=== PATIENT | female | born 1960 | race Caucasian/White ===

== ENCOUNTER 2016-10-08 08:22 | Emergency (ER) | payer OTHER ==
[~2016-10-08] VITALS: Ht 167.6 cm; Wt 85.2 kg
[~2016-10-08 08:22] MED LIST: AMBIEN10 MG PO; AMLODIPINE BESYL5 MG PO; ATENOLOL100 M1 PO; ATENOLOL100 MG PO; ATIVAN0.5 MG PO; Antivert PO; Aspirin Chewable PO; CARAFATE1 GM PO; EFFEXOR75 MG PO; FENOFIBRATE160 M1 PO; FENOFIBRATE160 MG PO; GEMFIBROZIL600 MG PO; GEODON60 MG PO; GEODON80 MG PO; KLOR-CON 1010 MEQ PO; LISINOPRIL10 MG PO; METFORMIN HCL500 MG PO; NORVASC; NORVASC5 MG PO; PAROXETINE HCL30 MG PO; PRILOSEC OTC20 MG PO; RANITIDINE HCL150 MG PO; REGLAN10 MG PO; SIMVASTATIN10 M1 PO; SIMVASTATIN10 MG PO; TRIAMTERENE-HC1 EAC3 PO; VENLAFAXINE HCL75 M3 PO; VENTOLIN HFA18 GM IH; ZANTAC150 MG PO
[2016-10-08 09:41] LABS: BASOPHIL COUNT 0.1 K/uL (0-0.1); EOSINOPHIL COUNT 0.2 K/uL (0-0.3); HEMATOCRIT 44.5 % (36.0-46.0); IMMATURE GRANULOCYTE (%) 0.3 % (0.0-0.7); INSTRUMENT ABS NEUTROPHIL CT 6.6 K/uL; LYMPHOCYTE COUNT 2.7 K/uL (1.0-2.8); MCH 32.7 PG (29.0-34.0); MCHC 33.9 G/DL (30.0-36.0); MCV 96.3 FL (83-99); MEAN PLAT.VOLUME 8.5 uM^3 (9.5-12.4); MONOCYTE (%) 6.6 % (3-12); MONOCYTE COUNT 0.7 K/uL (0-0.8); NEUTROPHIL (%) 64.2 % (45-76); NEUTROPHIL COUNT 6.6 K/uL (1.8-6.4); PLATELET COUNT 421 K/uL (156-360); RBC DIS.WIDTH-CV 13.3 % (11.8-14.6); RBC DIS.WIDTH-SD 47.4 % (39-53); RED BLOOD COUNT 4.62 M/uL (3.80-5.20); WHITE BLOOD COUNT 10.2 K/uL (4.1-10.2)
[2016-10-08 09:48] LABS: CHLORIDE 106 mEq/L (99-109); POTASSIUM 3.8 mEq/L (3.7-5.4); SODIUM 140 mEq/L (136-147)
[2016-10-08 09:50] LABS: GLUCOSE 122 mg/dL (70-99)
[2016-10-08 09:52] LABS: ANION GAP 11 MEQ/L (2-14); TOTAL BILIRUBIN 0.3 mg/dL (0.0-1.0)
[2016-10-08 09:54] LABS: ALKALINE PHOSPHATASE 124 IU/L (3-129); GFR ESTIMATE (CALCULATED) 55 mL/min/
[2016-10-08 09:55] LABS: UREA NITROGEN (BUN) 14 mg/dL (9-23)
[2016-10-08 09:57] LABS: LIPASE 39 U/L (1.0-51.0)
[2016-10-08 11:06] LABS: ADD MIUA? NO; BILIRUBIN NEGATIVE; BLOOD NEGATIVE; COLOR STRAW ((YELLOW)); GLUCOSE (STRIP) NEGATIVE; KETONES NEGATIVE; LEUKOCYTES NEGATIVE; NITRITE NEGATIVE; PROTEIN (STRIP) NEGATIVE; SPECIFIC GRAVITY 1.003 (1.000-1.030); UCUL ADDED? NO; UROBILINOGEN 0.2 MG/DL (0.2-1.0)
[2016-10-08] MEDS ORDERED: NAPROSYN500 MG PO (11:26)
[2016-10-08 11:38] VITALS: BP 118/79
== END 2016-10-08 11:39 | disposition home or self-care (01) ==
LOC: EME 08:22
PROVIDERS: Physician Assistant
DX: M54.9 Dorsalgia, unspecified (principal); R10.9 Unspecified abdominal pain; J45.909 Unspecified asthma, uncomplicated; E11.9 Type 2 diabetes mellitus without complications; I10 Essential (primary) hypertension; Z79.84 Long term (current) use of oral hypoglycemic drugs; F17.200 Nicotine dependence, unspecified, uncomplicated
CPT/HCPCS: 80053; 81003; 83690; 85025; 99281; 99284

== ENCOUNTER 2016-11-27 08:32 | Emergency (ER) | payer OTHER ==
[~2016-11-27] VITALS: Ht 170.2 cm; Wt 81.9 kg
[~2016-11-27 08:32] MED LIST changes: +NAPROSYN500 MG PO
[2016-11-27 09:44] LABS: HEMATOCRIT 46.1 % (36.0-46.0); MCH 32.6 PG (29.0-34.0); MCHC 34.3 G/DL (30.0-36.0); MCV 95.2 FL (83-99); MEAN PLAT.VOLUME 8.6 uM^3 (9.5-12.4); PLATELET COUNT 407 K/uL (156-360); RBC DIS.WIDTH-CV 13.2 % (11.8-14.6); RBC DIS.WIDTH-SD 46.5 % (39-53); RED BLOOD COUNT 4.84 M/uL (3.80-5.20); WHITE BLOOD COUNT 9.5 K/uL (4.1-10.2)
[2016-11-27 10:09] LABS: TROP-I INTERPRETATION NEGATIVE; TROPONIN-I < 0.01 ng/mL (0.0-0.30)
[2016-11-27 10:15] LABS: CHLORIDE 105 mEq/L (99-109); POTASSIUM 4.1 mEq/L (3.7-5.4); SODIUM 142 mEq/L (136-147)
[2016-11-27 10:16] LABS: GLUCOSE 108 mg/dL (70-99)
[2016-11-27 10:18] LABS: ANION GAP 11 MEQ/L (2-14)
[2016-11-27 10:20] LABS: GFR ESTIMATE (CALCULATED) 49 mL/min/
[2016-11-27 10:21] LABS: UREA NITROGEN (BUN) 13 mg/dL (9-23)
[2016-11-27 11:58] LABS: D-DIMER ELISA 0.41 mg/L FEU (< 0.57)
[2016-11-27 12:23] LABS: ADD MIUA? YES; BILIRUBIN NEGATIVE; BLOOD SMALL; COLOR STRAW ((YELLOW)); GLUCOSE (STRIP) NEGATIVE; KETONES NEGATIVE; LEUKOCYTES NEGATIVE; NITRITE NEGATIVE; PROTEIN (STRIP) NEGATIVE; SPECIFIC GRAVITY 1.005 (1.000-1.030); UROBILINOGEN 0.2 MG/DL (0.2-1.0)
[2016-11-27 12:34] LABS: AMPHETAMINE NEGATIVE (500 ng/mL); BARBITURATES NEGATIVE (200 ng/mL); BENZODIAZEPINES PRESUMPTIVE POSITIVE (150 ng/mL); COCAINE NEGATIVE (150 ng/mL); INTERNAL CONTROLS VALID? YES; METHADONE NEGATIVE (200 ng/mL); METHAMPHETAMINE NEGATIVE (500 ng/mL); OPIATES (MORPHINE) NEGATIVE (100 ng/mL); OXYCODONE NEGATIVE (100 ng/mL); PHENCYCLIDINE NEGATIVE (25 ng/mL); PROPOXYPHENE NEGATIVE (300 ng/mL); THC CANNABINOIDS PRESUMPTIVE POSITIVE (50 ng/mL); TRICYCLIC ANTIDEPRESSANTS PRESUMPTIVE POSITIVE (300 ng/mL)
[2016-11-27 12:35] LABS: ADD MEDTOX COMMENT Y
[2016-11-27 12:42] LABS: BACTERIA RARE /HPF; EPITHELIAL CELLS RARE /HPF; MUCUS NONE SEEN /LPF; RED BLOOD CELLS 0-5 /HPF (0-5); UCUL ADDED? NO; WHITE BLOOD CELLS 0-5 /HPF (0-5)
[2016-11-27 13:17] LABS: TROP-I INTERPRETATION NEGATIVE; TROPONIN-I < 0.01 ng/mL (0.0-0.30)
[2016-11-27] MEDS ORDERED: ULTRAM50 MG PO (13:23)
[2016-11-27 13:25] LABS: BENZODIAZEPINES QUANT VALUE 0 NG/ML; BENZODIAZEPINES, URINE SCREEN Negative (200 ng/mL)
[2016-11-27 13:46] VITALS: BP 157/100
== END 2016-11-27 13:56 | disposition home or self-care (01) ==
LOC: EME 08:32
PROVIDERS: Emergency Medicine
DX: R07.9 Chest pain, unspecified (principal); F19.10 Other psychoactive substance abuse, uncomplicated; J45.909 Unspecified asthma, uncomplicated; E11.9 Type 2 diabetes mellitus without complications; I10 Essential (primary) hypertension; F17.200 Nicotine dependence, unspecified, uncomplicated; Z79.82 Long term (current) use of aspirin; Z79.84 Long term (current) use of oral hypoglycemic drugs
CPT/HCPCS: 71020; 80048; 81003; 84484; 84999; 85027; 85379; 93005; 99281; 99285; J1885

== ENCOUNTER 2018-01-21 14:54 | Inpatient (IN) | payer OTHER ==
[~2018-01-21] VITALS: Ht 170.2 cm; Wt 82.3 kg
[~2018-01-21 14:54] MED LIST changes: +ULTRAM50 MG PO
[2018-01-21 15:20] LABS: HEMATOCRIT 41.2 % (36.0-46.0); HEMOGLOBIN 14.7 G/DL (11.9-15.5); MCHC 35.7 G/DL (30.0-36.0); MCV 92.4 FL (83-99); PLATELET COUNT 309 K/uL (156-360); RBC DIS.WIDTH-CV 14.1 % (11.8-14.6); RBC DIS.WIDTH-SD 48.5 % (39-53); RED BLOOD COUNT 4.46 M/uL (3.80-5.20); WHITE BLOOD COUNT 10.3 K/uL (4.1-10.2)
[2018-01-21 15:29] LABS: CHLORIDE 105 mEq/L (99-109); POTASSIUM 3.3 mEq/L (3.7-5.4); SODIUM 141 mEq/L (136-147)
[2018-01-21 15:30] LABS: GLUCOSE 131 mg/dL (70-99)
[2018-01-21 15:34] LABS: GFR ESTIMATE (CALCULATED) > 59 mL/min/
[2018-01-21 15:35] LABS: UREA NITROGEN (BUN) 7 mg/dL (9-23)
[2018-01-21 15:40] LABS: TROP-I INTERPRETATION NEGATIVE; TROPONIN-I < 0.01 ng/mL (0.0-0.30)
[2018-01-21] MEDS ORDERED: NAPROXEN500 MG PO (20:14)
[2018-01-21] MEDS ORDERED: LORAZEPAM0.5 MG PO (20:15)
[2018-01-21] MEDS ORDERED: ZOLPIDEM TARTRA10 MG PO (20:15)
[2018-01-21] MEDS ORDERED: PANTOPRAZOLE SO40 MG PO (20:15)
[2018-01-21] MEDS ORDERED: AMLODIPINE BESYL5 MG PO (20:15)
[2018-01-21] MEDS ORDERED: DOXEPIN HCL100 MG PO (20:15)
[2018-01-21] MEDS ORDERED: LATUDA40 MG PO (20:16)
[2018-01-21] MEDS ORDERED: COMBIVENT RESPIM4 GM IH (20:16)
[2018-01-21] MEDS ORDERED: LISINOPRIL20 MG PO (20:16)
[2018-01-21] MEDS ORDERED: SYMBICORT60 INHALAT IH (20:17)
[2018-01-21 22:10] LABS: ALBUMIN 3.8 g/dL (3.2-4.8)
[2018-01-21 22:13] LABS: TOTAL PROTEIN 7.1 g/dL (6.4-8.3)
[2018-01-21 22:15] LABS: TOTAL BILIRUBIN 0.2 mg/dL (0.0-1.0)
[2018-01-21 22:16] LABS: ALKALINE PHOSPHATASE 147 IU/L (3-129)
[2018-01-21 22:18] LABS: AST (GOT) 21 IU/L (2-34); DIRECT BILIRUBIN 0.1 mg/dL (0.0-0.3)
[2018-01-21 22:19] LABS: ALT (GPT) 25 IU/L (3-49)
[2018-01-21 22:23] LABS: TROP-I INTERPRETATION NEGATIVE; TROPONIN-I < 0.01 ng/mL (0.0-0.30)
[2018-01-21 22:38] VITALS: BP 147/85
[2018-01-22 03:47] VITALS: BP 132/73
[2018-01-22 04:18] LABS: HEMATOCRIT 39.5 % (36.0-46.0); HEMOGLOBIN 14.1 G/DL (11.9-15.5); MCH 32.8 PG (29.0-34.0); MCHC 35.7 G/DL (30.0-36.0); MCV 91.9 FL (83-99); PLATELET COUNT 289 K/uL (156-360); RBC DIS.WIDTH-CV 13.8 % (11.8-14.6); WHITE BLOOD COUNT 9.2 K/uL (4.1-10.2)
[2018-01-22 04:28] LABS: CHLORIDE 107 mEq/L (99-109); POTASSIUM 3.9 mEq/L (3.7-5.4); SODIUM 141 mEq/L (136-147)
[2018-01-22 04:33] LABS: CREATININE 1.1 mg/dL (0.6-1.3); GFR ESTIMATE (CALCULATED) 54 mL/min/
[2018-01-22 04:34] LABS: UREA NITROGEN (BUN) 9 mg/dL (9-23)
[2018-01-22 04:38] LABS: GLUCOSE 247 mg/dL (70-99)
[2018-01-22 04:44] LABS: TROP-I INTERPRETATION NEGATIVE; TROPONIN-I < 0.01 ng/mL (0.0-0.30)
[2018-01-22 06:59] VITALS: BP 152/84
[2018-01-22 11:32] VITALS: BP 148/83
[2018-01-22 16:04] VITALS: BP 136/88
[2018-01-22 19:57] VITALS: BP 156/83
[2018-01-22 23:55] VITALS: BP 140/75
[2018-01-23 04:20] VITALS: BP 158/88
[2018-01-23 07:12] VITALS: BP 157/102
[2018-01-23 11:44] VITALS: BP 143/85
[2018-01-23 15:45] VITALS: BP 160/72
[2018-01-24 00:25] VITALS: BP 138/84
[2018-01-24 07:11] VITALS: BP 163/83
[2018-01-24 15:06] VITALS: BP 146/78
[2018-01-25 00:14] VITALS: BP 155/86
[2018-01-25 07:36] VITALS: BP 152/97
[2018-01-25] MEDS ORDERED: NICOTINE PATCH1 EAC2 TD (09:58)
[2018-01-25] MEDS ORDERED: PREDNISONE20 MG PO (09:59)
== END 2018-01-25 11:34 | disposition home or self-care (01) | DRG 190 ==
LOC: EME 14:54 → RME 14:54 → 5SOUTH 20:32 → EDOF 20:32 → ENRESERV 20:46 → 5SOUTH 22:32
PROVIDERS: Hospitalist; Nurse Practitioner Family
DX: J44.1 Chronic obstructive pulmonary disease with (acute) exacerbation (principal); J18.9 Pneumonia, unspecified organism; J20.9 Acute bronchitis, unspecified; J44.0 Chronic obstructive pulmonary disease with (acute) lower respiratory infection; E11.65 Type 2 diabetes mellitus with hyperglycemia; T38.0X5A Adverse effect of glucocorticoids and synthetic analogues, initial encounter; M48.061 Spinal stenosis, lumbar region without neurogenic claudication; M54.41 Lumbago with sciatica, right side; I10 Essential (primary) hypertension; E87.6 Hypokalemia; E78.5 Hyperlipidemia, unspecified; R79.1 Abnormal coagulation profile; F25.9 Schizoaffective disorder, unspecified; F32.9 Major depressive disorder, single episode, unspecified; F41.9 Anxiety disorder, unspecified; F17.200 Nicotine dependence, unspecified, uncomplicated; Z71.6 Tobacco abuse counseling; Z79.84 Long term (current) use of oral hypoglycemic drugs; Z82.5 Family history of asthma and other chronic lower respiratory diseases
CPT/HCPCS: 71045; 71275; 72131; 80048; 80076; 82948; 84484; 85027; 87040; 87070; 87205; 93005; 93971; 94640; 94799; 99281; 99285; J0295; J0696; J1644; J1815; J1885; J2920; J2930; J7030; J7050; J7512